=== PATIENT | female | born 1940 | race Caucasian/White ===

== ENCOUNTER → 2016-06-14 | Outpatient (CLI) | payer BC ==
[~2016-06-14] MED LIST: ALPR-411 PO; BISM262C5 PO; DVN80 PO; INDA1TAB3 PO; PANT40TA PO
== END | disposition home or self-care (01) ==
LOC: C.RDSM 16:00
PROVIDERS: ATTEND Physical Medicine & Rehabilitation Sports Medicine
DX: M25.561 Pain in right knee (principal)

== ENCOUNTER → 2016-08-24 | Outpatient (CLI) | payer BC ==
--- NOTE | 2016-08-24 15:43 | MAMMOGRAPHY REPORT ---
BILATERAL DIGITAL SCREENING MAMMOGRAM WITH CAD: 08/24/2016 CLINICAL HISTORY: Routine screening. Patient has no complaints. TECHNIQUE: Bilateral CC and MLO views were obtained. Current study was also evaluated with a Comput er Aided Detection (CAD) system. COMPARISON: Comparison is made to exams dated: 08/22/2015 mammogram, 08/20/2014 mammogram, 08/17/2013 m ammogram, 08/16/2012 mammogram, 08/16/2011 mammogram, and 08/12/2010 mammogram - [facility]. BREAST COMPOSITION: The tissue of both breasts is almost entirely fatty. FINDINGS: There is a stable circumscribed 6 mm mass in the 6:00 posterior right breast, and a stable 12 mm lobulated mass in the 6:00 posterior left breast, both of which appear similar in size dating back to at least 08/09/2007, therefore likely benign. No new suspicious mass, architectural distor tion or cluster of microcalcifications is seen. There is new beaded prominence of a vein in the upp er outer posterior left breast, which can be seen with Mondor's disease. However, if the patient is asymptomatic, this is likely incidental. IMPRESSION: ACR BI-RADS CATEGORY 1: NEGATIVE 1. There is no mammographic evidence of malignancy. A 1 year screening mammogram is recommended. 2. New beaded prominence of the vein in the upper outer posterior left breast, which can be seen wi th Mondor's disease. However, if the patient is asymptomatic, this is likely incidental. The patient will receive written notification of the results. Approximately 10% of breast cancers are not detected with mammography. A negative mammographic repor t should not delay biopsy if a clinically suggestive mass is present. Ginna Decker M.D. ay/:08/24/2016 15:16:33 Meter/Relay Craftsman: Melva PARRA)(Bharti), [facility] letter sent: Normal 1/2 BI-RADS Code: ACR BI-RADS Category 1: Negative
== END | disposition home or self-care (01) ==
LOC: C.MAMM 09:55
PROVIDERS: ATTEND Obstetrics & Gynecology
DX: Z12.31 Encounter for screening mammogram for malignant neoplasm of breast (principal)

== ENCOUNTER → 2016-10-27 | Outpatient (CLI) | payer BC ==
[2016-10-27 11:29] LABS: BASO % 0.5 %; BASO ABS # 0.03 K/uL (0-0.2); COMPLETE YES; EOS % 0.9 %; HEMATOCRIT 42.9 % (37-47); IG% 0.3 %; LYMPH % 27.8 %; LYMPH ABS # 1.83 K/uL (1.2-3.4); MEAN CELL VOLUME 91.5 fL (80-100); MEAN CORPUSCULAR HEMOGLOBIN 29.6 pg (25-34); MEAN CORPUSCULAR HGB CONC 32.4 g/dl (32-36); MEAN PLATELET VOLUME 11.6 fL (7.4-10.4); MONO % 9.3 %; NEUT % 61.2 %; PLATELET COUNT 209 K/uL (130-400); RED BLOOD COUNT 4.69 M/uL (4.2-5.4); WHITE BLOOD COUNT 6.59 K/uL (4.8-10.8)
[2016-10-27 11:47] LABS: ALT/SGPT 73 U/L (12-78); AST/SGOT 59 U/L (15-37); BLOOD UREA NITROGEN 18 mg/dl (7-18); BUN/CREATININE RATIO 21.6 (10-20); CALCIUM 9.1 mg/dl (8.5-10.1); CARBON DIOXIDE 32 mmol/L (21-32); CHLORIDE 106 mmol/L (98-107); CREATININE 0.85 mg/dl (0.60-1.20); GLUCOSE 104 mg/dl (70-99); POTASSIUM 3.8 mmol/L (3.5-5.1); SODIUM 144 mmol/L (136-145)
[2016-10-27 11:58] LABS: CHOLESTEROL 105 mg/dl (0-200); CHOLESTEROL/HDL RATIO 2.2; HDL CHOLESTEROL 48 mg/dl; LDL CHOLESTEROL CALCULATED 32 mg/dl; TRIGLYCERIDES 124 mg/dl (0-150); VERY LOW DENSITY LIPOPROT CALC 25 mg/dl
[2016-10-27 12:56] LABS: ESTIMATED AVERAGE GLUCOSE 123 mg/dl; HA1C FLAG Normal (Normal)
== END | disposition home or self-care (01) ==
LOC: C.LABBC 08:34
PROVIDERS: ATTEND Physician Assistant
DX: I10 Essential (primary) hypertension (principal); E78.00 Pure hypercholesterolemia, unspecified; R73.9 Hyperglycemia, unspecified

== ENCOUNTER → 2017-01-28 | Outpatient (CLI) | payer BC ==
[2017-01-28 14:11] LABS: ALT/SGPT 50 U/L (12-78); BLOOD UREA NITROGEN 21 mg/dl (7-18); BUN/CREATININE RATIO 22.7 (10-20); CALCIUM 9.2 mg/dl (8.5-10.1); CARBON DIOXIDE 28 mmol/L (21-32); CHLORIDE 107 mmol/L (98-107); CREATININE 0.93 mg/dl (0.60-1.20); GLUCOSE 118 mg/dl (70-99); POTASSIUM 3.9 mmol/L (3.5-5.1); SODIUM 141 mmol/L (136-145)
[2017-01-28 14:14] LABS: ALB/GLOB RATIO 0.9 (0.9-2); ALKALINE PHOSPHATASE 84 U/L (45-117); AST/SGOT 41 U/L (15-37)
[2017-01-29 07:57] LABS: ESTIMATED AVERAGE GLUCOSE 111 mg/dl; HA1C FLAG Normal (Normal)
== END | disposition home or self-care (01) ==
LOC: C.LABBC 09:23
PROVIDERS: ATTEND Family Medicine
DX: R73.03 Prediabetes (principal); E78.00 Pure hypercholesterolemia, unspecified

== ENCOUNTER → 2017-02-11 | Outpatient (CLI) | payer BC | END | disposition home or self-care (01) | LOC: C.LAB1850 13:05 | PROVIDERS: ATTEND Internal Medicine | DX: H53.122 Transient visual loss, left eye (principal) ==

== ENCOUNTER → 2017-07-25 | Outpatient (CLI) | payer BC ==
[2017-07-25 13:59] LABS: HEMOGLOBIN A1C 5.9 % (4.5-5.6)
== END | disposition home or self-care (01) ==
LOC: C.LAB1850 12:22
PROVIDERS: ATTEND Internal Medicine
DX: E78.00 Pure hypercholesterolemia, unspecified (principal)

== ENCOUNTER → 2017-08-26 | Outpatient (CLI) | payer BC ==
--- NOTE | 2017-08-26 15:38 | MAMMOGRAPHY REPORT ---
BILATERAL DIGITAL SCREENING MAMMOGRAM TOMOSYNTHESIS WITH CAD: 08/26/2017 CLINICAL HISTORY: Routine screening. Patient has no complaints. TECHNIQUE: Breast tomosynthesis in addition to standard 2D mammography was performed. Current study was also evaluated with a Computer Aided Detection (CAD) system. COMPARISON: Comparison is made to exams dated: 08/24/2016 mammogram, 08/22/2015 mammogram, 08/20/2014 nova mogram, 08/17/2013 mammogram, 08/16/2012 mammogram, and 08/16/2011 mammogram - [facility]. BREAST COMPOSITION: The tissue of both breasts is almost entirely fatty. FINDINGS: No suspicious masses, calcifications, or areas of architectural distortion are noted in ei ther breast. There has been no significant interval change compared to prior exams. Circumscribed be nign-appearing 11 mm mass in the left central breast is stable dating back to at least the 2008 exam. IMPRESSION: ACR BI-RADS CATEGORY 2: BENIGN There is no mammographic evidence of malignancy. A 1 year screening mammogram is recommended. The pa tient will receive written notification of the results. Approximately 10% of breast cancers are not detected with mammography. A negative mammographic report should not delay biopsy if a clinically suggestive mass is present. Jenifer Velasquez M.D. /:08/26/2017 11:02:50 Casting Supervisor: Alondra Werner, [facility] letter sent: Normal 1/2 BI-RADS Code: ACR BI-RADS Category 2: Benign
== END | disposition home or self-care (01) ==
LOC: C.MAMM 10:02
PROVIDERS: ATTEND Obstetrics & Gynecology
DX: Z12.31 Encounter for screening mammogram for malignant neoplasm of breast (principal)

== ENCOUNTER 2018-06-19 06:41 | Observation (INO) ==
--- NOTE | 2018-06-19 07:54 | History & Physical Bridge Note ---
Date of Service June 19, 2018 History & Physical Bridge Note I have examined the patient, reviewed the History & Physical and in the interval since the performance of the History & Physical I have noted the following changes of clinical significance: Cardiac perfusion study from did not reveal any ischemia
--- NOTE | 2018-06-19 07:55 | Pre Anesthesia Assessment ---
Date of Service June 19, 2018 Pre Sedation Assessment Vital Signs Temp Pulse Resp BP Pulse Ox 06/19/18 07:21 36.7 C 78 16 169/74 H 98 Cardiovascular + regular rate Respiratory + respiratory effort normal Pre-Sedation Airway Assessment Smoking Status: Never smoker Hx Sleep Apnea: No Hx Difficult Intubation: No Short, Thick Neck: Yes Thyromental Distance: > or= 3.5 Finger Breadths Oral Cavity: + WNL Mallampati Class: II ASA: ASA3 NPO Status Date of Last Intake of Fluids: 06/18/18 Time of Last Intake of Fluids: 16:00 Date of Last Intake of Solid Food: 06/18/18 Time of Last Intake of Solid Foods: 16:00 Procedure Planning Contraindications for Sedation: none Current Medications Reviewed: Yes Notes The planned sedation has been discussed with the patient. Informed Consent was obtained. I have identified the patient, determined the appropriateness of sedation and have assessed the patient immediately prior to the procedure. All medicine(s) and interventions are by my order.
[2018-06-19] MEDS ORDERED: fentaNYL citrate 100 MCG/2 ML VIAL ONE ×2 (08:01→08:34)
[2018-06-19] MEDS ORDERED: MIDAZOLAM HCL 5 MG/ML 1 ML VIAL ONE ×2 (08:01→08:34)
[2018-06-19] MEDS ORDERED: CEFAZOLIN 250 MG/ML 1 GM VIAL ONE (08:02)
[2018-06-19] MEDS ORDERED: WATER, STERILE FOR INJ 10 ML VIAL ONE (08:02)
[2018-06-19] MEDS ORDERED: BUPIVACAINE 0.5 % 5 MG/1 ML PF 10ML VIAL ONE (08:03)
[2018-06-19] MEDS ORDERED: LIDOCAINE HCL 1% 20 ML VIAL ONE (08:03)
[2018-06-19] MEDS ORDERED: ACETAMINOPHEN 325 MG TAB PO PRN (10:17)
--- NOTE | 2018-06-19 10:17 | Procedure Note ---
Procedure Note Date of Service June 19, 2018 Note Procedure performed: Implantation of dual-chamber permanent pacemaker Staff lead oxide mill tender: Reynaldo Stapleton MD Indication: The patient is a 77-year-old woman with a history of dizziness and sinus node dysfunction. Based on her symptoms and sinus node dysfunction she was felt to be a good candidate for permanent pacemaker due to symptomatic nonreversible sinus node dysfunction. Dual-chamber device was selected is a currently in sinus rhythm and wished to maintain AV synchrony. Procedure in detail: The patient was informed of the risks benefits and alternatives to the intended procedure and she wished to proceed. She was taken to the electrophysiology suite in a fasting state. A preoperative antibiotic had been administered. The patient was monitored electrocardiographically throughout today's procedure and conscious sedation was administered per protocol. The left upper pectoral area is prepped and draped in usual sterile fashion. This area was anesthetized using subcutaneous administration of a xylocaine solution. An incision was made at this site and carried down to the prepectoralis fascia using sharp dissection. Electrocautery was also employed for dissection as well as for hemostasis. A device pocket was fashioned tissues above the pectoralis muscle. Subsequent to this maneuver the left axillary vein was accessed using modified Seldinger technique. Sheaths were placed over guidewires at this site and used to facilitate passage of the pacing leads to the respective chambers under fluoroscopic guidance. Initially we attempted to map for a His bundle with a preformed sheath. However, this was not successful. Eventually the sheaths were used to place a standard pacing leads. This included right atrial and right ventricular leads. Adequate sensing and threshold parameters were obtained prior to Active fixation of the leads to the endocardial surface. The proximal portion leads were then sutured the prepectoral fascia using nonabsorbable suture. The device pocket was irrigated with antibiotic solution. The leads were then attached to the device. The device and leads were then placed in the pocket and pocket was closed in 3 layers of absorbable suture. Steri-Strips and sterile dressing were applied. The device was tested noninvasively prior to conclusion the procedure. The patient tolerated procedure well there no immediate complications. Equipment used: New pulse generator: [employer]. Model number: [id number] serial number [id number] Right atrial lead: [employer]. Model number: [id number] serial number [id number] Right ventricular lead: [employer]. Model number: [id number] serial number [id number] Measured data: Right atrial lead: P waves measured 1.8 mV pacing threshold 1 V at 0.4 ms with a pacing impedance of 570 ohms Right ventricular lead: R waves measured 2.9 mV in bipolar and 5.1 mV and unipolar. Pacing threshold 0.5 V at 0.4 ms with a pacing impedance of 608 ohms Impression: Successful implantation of excessive implantation of dual-chamber permanent pacemaker
[2018-06-19] MEDS ORDERED: OXYCODONE HCL IR 5 MG TAB (IMMEDIATE RELEASE) PO PRN (10:19)
[2018-06-19] MEDS: CEFAZOLIN 1000MG 1,000 MG/7.5 ML SYR IV SCH (17:10)
[2018-06-19] MEDS ORDERED: ALPRAZolam 0.25 MG TABLET PO PRN (18:31)
[2018-06-19] MEDS ORDERED: ATORVASTATIN 20 MG TAB PO SCH (21:00)
[2018-06-20] MEDS: CEFAZOLIN 1000MG 1,000 MG/7.5 ML SYR IV SCH ×2 (02:50→09:09)
--- NOTE | 2018-06-20 07:46 | XRay Report ---
XR chest 2V routine CLINICAL HISTORY: Pacemaker insertion COMPARISON STUDY: 02/23/2018 FINDINGS: There is a left subclavian dual-chamber central venous pacemaker present. The electrode pos ition appears unremarkable. There is no pneumothorax. The heart is the upper limits of normal in size . There is no failure. There is no focal pulmonary consolidation. There are no pleural effusions.[ IMPRESSION: No evidence of pneumothorax status post placement of a left subclavian dual-chamber centr al venous pacemaker. Electronically signed by: Edwin Zimmer M.D. 06/20/2018 7:45 AM
[2018-06-20] MEDS ORDERED: INDAPAMIDE 1.25 MG TAB PO SCH (09:00)
[2018-06-20] MEDS ORDERED: LOSARTAN POTASSIUM 50 MG TAB PO SCH (09:00)
[2018-06-20] MEDS ORDERED: PANTOprazole 40 MG TAB PO SCH (09:00)
--- NOTE | 2018-06-20 09:56 | Discharge Summary ---
Date of Service June 20, 2018 Admission HPI Patient was noted on outpatient monitoring to have significant sinus node dysfunction and associated dizziness. She is therefore felt to be a good candidate for permanent pacemaker due to symptomatic non reversible SA node dysfunction Principal Diagnosis Principal Diagnosis Sick sinus syndrome Discharge Exam Day of discharge the wound appeared to be healing well. There is mild ecchymosis. There is no drainage. There is no erythema. There is no hematoma. Discharge Data Allergies Allergy/AdvReac Type Severity Reaction Status Date / Time ketorolac AdvReac Mild Nausea/Vomiting Verified 04/05/18 08:18 - per Dr Herbert Procedures Performed Operation Date: 06/19/18 08:00 Actual Procedures p Pacer with A/V Leads (Dual)(Left) - Wesly Stapleton MD Ordered Studies 06/19/18 06:42 CL Cath Imgs for PACS use only Routine 06/19/18 07:45 EP Lab Images for PACS ONCE Hospital Course (1) Sick sinus syndrome: The day of admission the patient underwent implantation of a dual-chamber permanent pacemaker. The procedure was uncomplicated. Following morning the patient's chest x-ray demonstrated stable lead position without evidence of pneumothorax. The wound evaluation did not reveal any hematoma or complication. Device interrogation revealed normal function both atrial and ventricular leads. Total Time Total Time Spent Total Time Spent (In Minutes): 10 Discharge Plan Discharge Items Patient Disposition: Home - Self-Care Reason For Visit: Dual Chamber Pacemaker INSERTION Discharge Goals: Therapeutic intervention Activity: Per 'Additional Instructions' section Lifting: No more than 10 pounds Lifting Comment: Do not lift left arm above shoulder behind neck Bathing: Keep incision dry Sexual Activity: When tolerated Driving/Machine Use: Resume 1 day after discharge Non-emergency contact: Shoe Repair Cobbler Call non-emergency contact if: your pain is worsening, you have a fever and your wound has increased redness Follow-up/Referrals: Stefan New MD [Primary Care Provider] - Diet: Heart Healthy Addtl Provider Instructions: Keep wound dry and Steri-Strips intact until follow-up next week. Refrain from using the left arm above the shoulder behind the neck for 6 weeks. Prescriptions: Discontinued valsartan [Diovan] 80 mg Tablet 80 mg PO QAM RF: 0 No Action atorvastatin [Lipitor] 20 mg Tablet 20 mg PO QPM RF: 0 clonazepam 0.5 mg Tablet 0.5 - 1 tab PO HS RF: 0 alprazolam [Xanax] 0.25 mg Tablet 0.25 mg PO Q6H PRN (Reason: Anxiety) RF: 0 indapamide 1.25 mg Tablet 1.25 mg PO QAM RF: 0 pantoprazole [address] For Susp In Packet 40 mg PO QAM RF: 0 fluconazole 150 mg tablet 150 mg PO DAILY PRN (Reason: Vaginal Cleansing) RF: 0 losartan 50 mg tablet 50 mg PO DAILY RF: 0 Stand-Alone Forms: [facility] Discharge Orders: Discharge Order (Routine); Ordered 06/20/18 Ordered By: Wesly Stapleton Admission Data Admit Date/Time: 06/19/18 09:12 Attending Provider: Wesly Stapleton Admit Provider: Wesly Stapleton Primary Care Provider: Stefan New Service: Telemetry
== END 2018-06-20 11:20 | disposition home or self-care (01) ==
LOC: EP 06:41 → 2S 06:41